=== PATIENT | male | born 1985 | race Caucasian/White ===

== ENCOUNTER 2018-02-04 18:48 | Emergency (ER) | payer OTHER ==
[2018-02-04 19:03] VITALS: BP 124/87; PULSE 88; RESP 18; TEMP 98.8; O2SAT 99
[2018-02-04] MEDS ORDERED: Bacitracin 500 Units/gm Oint Foilpak UD ONE ×2 (19:34→19:36)
--- NOTE | 2018-02-04 19:41 | C.PDOC ---
History Of Present Illness 32 year old male presents to the ED for an evaluation of wound and dressing change. Patient states he had a surgery of his right humerus 6 days ago. He reports his dressing got wet when he was taking a shower. Denies pain or drainage at this time Time Seen by Provider: 02/04/18 19:19 Chief Complaint (Nursing): Wound Check History Per: Patient History/Exam Limitations: no limitations Current Symptoms Are (Timing): Gone Location Of Injury: Right: Arm, Forearm Severity: None Past Medical History Reviewed: Historical Data, Nursing Documentation, Vital Signs Vital Signs: Last Vital Signs Temp 98.8 F 02/04/18 19:00 Pulse 88 02/04/18 19:00 Resp 18 02/04/18 19:00 BP 124/87 02/04/18 19:00 Pulse Ox 99 02/05/18 01:03 - Medical History PMH: No Chronic Diseases Other Surgeries: Hx of surgeries Family History: States: No Known Family Hx - Social History Hx Alcohol Use: Yes Hx Substance Use: No - Immunization History Hx Tetanus Toxoid Vaccination: No Hx Influenza Vaccination: No Hx Pneumococcal Vaccination: No Review Of Systems Except As Marked, All Systems Reviewed And Found Negative. Physical Exam - Physical Exam Appears: Non-toxic Skin: Warm, Dry Head: Normacephalic Eye(s): bilateral: Normal Inspection Nose: Normal Oral Mucosa: Moist Extremity: Capillary Refill (less than 2 sec ), No Deformity, No Swelling, Other (Healing and well appearing surgically stapled wound to posterior aspect of right distal upper arm extending to proximal forearm. No swelling, no bleeding, no erythema, no drainage.no erythema or warmth) Pulses: Left Femoral: Normal, Right Femoral: Normal Neurological/Psych: Oriented x3, Normal Speech ED Course And Treatment O2 Sat by Pulse Oximetry: 99 (RA) Pulse Ox Interpretation: Normal Progress Note: Wound cleaned and dressing changed. Nonadherent dressing placed. Patient tolerated procedure well. Disposition Counseled Patient/Family Regarding: Diagnosis, Need For Followup - Disposition Referrals: Orthopedist, PMD [Other] Disposition: HOME/ ROUTINE Disposition Time: 19:43 Condition: STABLE Additional Instructions: Bacitracin ointment Keep wound clean and dry Return to ER if worse Instructions: Wound Care (DC) Forms: [facility] ([place]) - Clinical Impression Clinical Impression: Visit for wound check - PA / [employer] / Resident Statement MD/DO has reviewed & agrees with the documentation as recorded. - Scribe Statement The provider has reviewed the documentation as recorded by the Scribe Collette Botello All medical record entries made by the Baldemar were at my direction and personally dictated by me. I have reviewed the chart and agree that the record accurately reflects my personal performance of the history, physical exam, medical decision making, and the department course for this patient. I have also personally directed, reviewed, and agree with the discharge instructions and disposition.
== END 2018-02-04 20:18 | disposition home or self-care (01) ==
LOC: C.ER 18:48
DX: Z48.00 Encounter for change or removal of nonsurgical wound dressing (principal)